=== PATIENT | female | born 1945 | race Caucasian/White ===

== ENCOUNTER 2023-05-08 04:44 | Day surgery (SDC) | payer OTHER ==
[2023-05-06 09:05] VITALS: BMI 23.1
[2023-05-08 09:21] VITALS: TEMP 98
[2023-05-08 09:39] VITALS: RESP 18
[2023-05-08 09:42] VITALS: BP 132/93; PULSE 74
== END 2023-05-08 09:50 | disposition home or self-care (01) ==
LOC: JASU-ENDO 04:44
PROVIDERS: ATTEND Internal Medicine Gastroenterology
PROC: 0DB68ZX Excision of Stomach, Via Natural or Artificial Opening Endoscopic, Diagnostic (ICD-10-PCS; 2023-05-08)
PROC: 0DBL8ZX Excision of Transverse Colon, Via Natural or Artificial Opening Endoscopic, Diagnostic (ICD-10-PCS; principal; 2023-05-08 08:30)
DX: Z12.11 Encounter for screening for malignant neoplasm of colon (principal); D12.3 Benign neoplasm of transverse colon; K64.8 Other hemorrhoids; K59.89 Other specified functional intestinal disorders; K29.50 Unspecified chronic gastritis without bleeding; K44.9 Diaphragmatic hernia without obstruction or gangrene; R63.4 Abnormal weight loss; Z86.010 Personal history of colon polyps
CPT/HCPCS: 88305-TC; 88342-TC

== ENCOUNTER 2023-06-10 12:36 | Inpatient (IN) | payer OTHER ==
[2023-06-10] MEDS ORDERED: SODIUM CHLORIDE 0.9% 500 ML INFUS.BAG IV ONE (14:58)
[2023-06-10] MEDS ORDERED: ONDANSETRON 4 MG/2 ML VIAL IVPUSH ONE (14:59)
[2023-06-10] MEDS ORDERED: ACETAMINOPHEN 1000 MG/100 ML BAG IVPB ONE (14:59)
[2023-06-10] MEDS ORDERED: ACETAMINOPHEN INJECTION 100 ML IVPB ONE (15:02)
[2023-06-10] MEDS ORDERED: ONDANSETRON 4 MG/2 ML VIAL ONE (15:03)
[2023-06-10 15:23] LABS: HEMATOCRIT 49.9 % (32.4-45.2); HEMOGLOBIN 16.5 GM/dL (10.7-15.3); MCH 26.4 pg (25.7-33.7); MEAN PLT VOLUME 9.7 fl (7.5-11.1); PLATELET COUNT 293 10^3/uL (134-434); RBC 6.23 M/mm3 (3.60-5.2); RDW 15.4 % (11.6-15.6); WHITE BLOOD COUNT 25.9 K/mm3 (4.0-10.0)
[2023-06-10 15:24] LABS: INR 1.06 (0.83-1.09); PROTHROMBIN TIME (PATIENT) 12.3 SEC (9.7-13.0)
[2023-06-10 15:27] LABS: ACTIVATED PTT 28.7 SECONDS (25.2-36.5)
[2023-06-10 15:44] LABS: POTASSIUM 3.8 mmol/L (3.5-5.1)
[2023-06-10 15:46] LABS: CALCIUM 9.5 mg/dL (8.5-10.1)
[2023-06-10 15:47] LABS: ALBUMIN 4.1 g/dl (3.4-5.0); BLOOD UREA NITROGEN 12.9 mg/dL (7-18)
[2023-06-10 15:49] LABS: ANISOCYTOSIS 2+; MACROCYTOSIS 0
[2023-06-10 15:50] LABS: CREATININE 0.7 mg/dL (0.55-1.3); PHOSPHOROUS 3.2 mg/dL (2.5-4.9)
[2023-06-10 15:51] LABS: BILIRUBIN,TOTAL 0.8 mg/dL (0.2-1); TOT PROT 8.1 g/dl (6.4-8.2)
[2023-06-10] MEDS ORDERED: SODIUM CHLORIDE 0.9% 1000 ML INFUS.BAG IV ONE (18:46)
[2023-06-10 19:42] LABS: EPI CELLS 24 /uL (0-25.1); HYALINE CASTS 1 /uL (0-3.1); PH,URINE 8.5 (5.0-8.0); URINE APPEARANCE TURBID; URINE BACTERIA >9,000 /uL (0-1359); URINE BILIRUBIN NEGATIVE (NEGATIVE); URINE COLOR DK YELLOW; URINE GLUCOSE (UA) NEGATIVE (NEGATIVE); URINE KETONE 1+ (NEGATIVE); URINE LEUK ESTERASE 2+ (NEGATIVE); URINE NITRITE NEGATIVE (NEGATIVE); URINE PROTEIN 1+ (NEGATIVE); URINE RBC 933 /uL (0-23.9); URINE WBC 122 /uL (0-25.8)
[2023-06-10] MEDS ORDERED: CEFTRIAXONE 1 GM in DEXTROSE 5%-WATER - 100 ML IVPB ONE (19:51)
[2023-06-10] MEDS ORDERED: CEFTRIAXONE 1 GM/50 ML BAG ONE (19:55)
[2023-06-10 21:05] LABS: HEMATOCRIT 41.8 % (32.4-45.2); HEMOGLOBIN 13.7 GM/dL (10.7-15.3); MCH 26.1 pg (25.7-33.7); MCHC 32.8 g/dl (32.0-36.0); MEAN CELL VOLUME 79.6 fl (80-96); MEAN PLT VOLUME 9.5 fl (7.5-11.1); PLATELET COUNT 248 10^3/uL (134-434); RBC 5.25 M/mm3 (3.60-5.2); RDW 14.9 % (11.6-15.6); WHITE BLOOD COUNT 20.6 K/mm3 (4.0-10.0)
[2023-06-11] MEDS ORDERED: POLYETHYLENE GLYCOL (HEALTHYLAX) 3350 17 GM PACKET ONE (04:41)
[2023-06-11] MEDS: POLYETHYLENE GLYCOL (HEALTHYLAX) 3350 17 GM PACKET PO SCH ×3 (05:00→21:55)
[2023-06-11 06:35] LABS: HEMATOCRIT 42.8 % (32.4-45.2); HEMOGLOBIN 13.7 GM/dL (10.7-15.3); MCH 25.9 pg (25.7-33.7); MEAN CELL VOLUME 80.8 fl (80-96); PLATELET COUNT 241 10^3/uL (134-434); RBC 5.29 M/mm3 (3.60-5.2); RDW 14.7 % (11.6-15.6); WHITE BLOOD COUNT 20.7 K/mm3 (4.0-10.0)
[2023-06-11 06:52] LABS: POTASSIUM 3.7 mmol/L (3.5-5.1)
[2023-06-11 06:54] LABS: CALCIUM 8.3 mg/dL (8.5-10.1)
[2023-06-11 06:58] LABS: CREATININE 0.6 mg/dL (0.55-1.3); PHOSPHOROUS 2.6 mg/dL (2.5-4.9)
[2023-06-11 06:59] LABS: BILIRUBIN,TOTAL 0.9 mg/dL (0.2-1); TOT PROT 6.1 g/dl (6.4-8.2)
[2023-06-11 07:06] LABS: ALBUMIN 3.1 g/dl (3.4-5.0)
[2023-06-11 09:13] LABS: ANISOCYTOSIS 3+; MACROCYTOSIS 0
[2023-06-11] MEDS: ENOXAPARIN NA (PORCINE) 40 MG/0.4 ML DISP.SYRIN SQ SCH (09:23)
[2023-06-11] MEDS ORDERED: DIPHENHYDRAMINE HCL 25 MG/10 ML CUP PO ONE (10:01)
[2023-06-11] MEDS ORDERED: diphenhydrAMINE HCL 25 MG CAPSULE (FP) PO ONE (10:41)
[2023-06-11] MEDS: PIPERACILLIN/TAZOB 3.375 GM 3.375 GM in DEXTROSE 5%-WATER - 50 ML IVPB SCH (17:57)
[2023-06-11] MEDS: DOCUSATE SODIUM 100 MG CAPSULE (FP) PO SCH (21:55)
[2023-06-11] MEDS: SENNOSIDES 8.8 MG/5 ML SYRUP PO SCH (21:55)
[2023-06-12] MEDS: PIPERACILLIN/TAZOB 3.375 GM 3.375 GM in DEXTROSE 5%-WATER - 50 ML IVPB SCH ×3 (02:43→18:05)
[2023-06-12] MEDS: POLYETHYLENE GLYCOL (HEALTHYLAX) 3350 17 GM PACKET PO SCH ×3 (05:41→21:40)
[2023-06-12] MEDS: DOCUSATE SODIUM 100 MG CAPSULE (FP) PO SCH ×3 (05:41→21:40)
[2023-06-12] MEDS: ENOXAPARIN NA (PORCINE) 40 MG/0.4 ML DISP.SYRIN SQ SCH (10:56)
[2023-06-12] MEDS ORDERED: diphenhydrAMINE HCL 25 MG CAPSULE (FP) PO PRN (11:22)
[2023-06-12] MEDS: HYDROCORTISONE 1% TOPICAL CREAM 30 GM TUBE TP SCH ×2 (12:25→21:41)
[2023-06-12 16:19] VITALS: BMI 23.3
[2023-06-12] MEDS: SENNOSIDES 8.8 MG/5 ML SYRUP PO SCH (21:40)
[2023-06-12] MEDS ORDERED: MIRTAZAPINE 15 MG TABLET (FP) PO SCH (22:00)
[2023-06-12] MEDS ORDERED: ATORVASTATIN CA 10 MG TABLET (FP) PO SCH (22:00)
[2023-06-12 22:02] VITALS: RESP 18
[2023-06-13] MEDS: PIPERACILLIN/TAZOB 3.375 GM 3.375 GM in DEXTROSE 5%-WATER - 50 ML IVPB SCH ×2 (01:44→10:30)
[2023-06-13] MEDS: POLYETHYLENE GLYCOL (HEALTHYLAX) 3350 17 GM PACKET PO SCH (06:33)
[2023-06-13] MEDS: DOCUSATE SODIUM 100 MG CAPSULE (FP) PO SCH (06:33)
[2023-06-13 09:21] LABS: BASO % 0.5 % (0-2.0); EOS % 1.5 % (0-4.5); HEMATOCRIT 43.6 % (32.4-45.2); HEMOGLOBIN 14.6 GM/dL (10.7-15.3); MCH 26.6 pg (25.7-33.7); MCHC 33.6 g/dl (32.0-36.0); MEAN CELL VOLUME 79.1 fl (80-96); MONO % 10.5 % (3.8-10.2); NEUT % 80.5 % (42.8-82.8); PLATELET COUNT 237 10^3/uL (134-434); RBC 5.51 M/mm3 (3.60-5.2); RDW 15.2 % (11.6-15.6); WHITE BLOOD COUNT 8.6 K/mm3 (4.0-10.0)
[2023-06-13] MEDS: HYDROCORTISONE 1% TOPICAL CREAM 30 GM TUBE TP SCH (10:46)
[2023-06-13] MEDS: ENOXAPARIN NA (PORCINE) 40 MG/0.4 ML DISP.SYRIN SQ SCH (10:46)
[2023-06-13 11:53] VITALS: BP 131/58; PULSE 70; TEMP 98.2
== END 2023-06-13 12:47 | disposition home or self-care (01) | DRG 690 ==
LOC: JER 12:36 → JERBED 21:40 → J7W 06-11 15:52
PROVIDERS: ADMIT Internal Medicine; ATTEND Internal Medicine
DX: N39.0 Urinary tract infection, site not specified (principal); K59.00 Constipation, unspecified; L27.0 Generalized skin eruption due to drugs and medicaments taken internally; T36.1X5A Adverse effect of cephalosporins and other beta-lactam antibiotics, initial encounter; M32.8 Other forms of systemic lupus erythematosus; I73.00 Raynaud's syndrome without gangrene; E78.5 Hyperlipidemia, unspecified; M81.0 Age-related osteoporosis without current pathological fracture; F32.A Depression, unspecified; D72.829 Elevated white blood cell count, unspecified; D75.1 Secondary polycythemia; I72.3 Aneurysm of iliac artery; K44.9 Diaphragmatic hernia without obstruction or gangrene; I44.0 Atrioventricular block, first degree; K64.8 Other hemorrhoids; K63.5 Polyp of colon; Z85.3 Personal history of malignant neoplasm of breast
CPT/HCPCS: 36415; 74177-TC; 80053; 81003; 82272; 83605; 83690; 83735; 84100; 84484; 85025; 85027; 85610; 85730; 86850; 86900; 86901; 87086; 93005; 93010; 99285-25; Q9967

== ENCOUNTER 2024-08-16 06:34 | Emergency (ER) | payer OTHER ==
[2024-08-16 06:55] VITALS: TEMP 97.9; BMI 20.5
[2024-08-16] MEDS ORDERED: TRANEXAMIC ACID 1000 MG/10 ML VIAL ONE (08:15)
[2024-08-16] MEDS: TRANEXAMIC ACID 1000 MG/10 ML VIAL IVPUSH ONE (08:50)
[2024-08-16 11:28] VITALS: BP 118/65; PULSE 74; RESP 18
== END 2024-08-16 11:28 | disposition home or self-care (01) ==
LOC: JER 06:34
PROC: 3E033GC Introduction of Other Therapeutic Substance into Peripheral Vein, Percutaneous Approach (ICD-10-PCS; principal; 2024-08-16)
DX: K13.79 Other lesions of oral mucosa (principal)
CPT/HCPCS: 99284-25

== ENCOUNTER 2024-08-17 12:59 | Emergency (ER) | payer OTHER ==
[2024-08-17 13:11] VITALS: BMI 20.5
[2024-08-17] MEDS ORDERED: TRANEXAMIC ACID 1000 MG/10 ML VIAL ONE (13:57)
[2024-08-17] MEDS: TRANEXAMIC ACID 1000 MG/10 ML VIAL IVPUSH ONE ×2 (15:19→15:36)
[2024-08-17] MEDS: EPINEPHrine 1:1,000 TOPICAL SOL 30 ML BTL NS ONE (15:20)
[2024-08-17] MEDS ORDERED: LIDOCAINE 1%/EPI 1:100000 (20 ML MULTI DOSE VIAL) ONE (16:23)
[2024-08-17 16:56] VITALS: RESP 19
[2024-08-17] MEDS: LIDOCAINE 1%/EPI 1:100000 (20 ML MULTI DOSE VIAL) IJ ONE (17:14)
[2024-08-17 18:38] VITALS: BP 110/69; PULSE 76; TEMP 97.9
== END 2024-08-17 18:44 | disposition home or self-care (01) ==
LOC: JER 12:59
PROC: 3E033GC Introduction of Other Therapeutic Substance into Peripheral Vein, Percutaneous Approach (ICD-10-PCS; principal; 2024-08-17)
DX: K12.1 Other forms of stomatitis (principal)
CPT/HCPCS: 99284-25